=== PATIENT | male | born 1975 | race Caucasian/White ===

== ENCOUNTER 2018-08-28 00:34 | Observation (INO) | payer OTHER ==
[2018-08-28] MEDS ORDERED: HEPARIN SODIUM,PORCINE 5,000 UNIT/ML 1 ML VIAL IV STA (00:51)
[2018-08-28] MEDS ORDERED: SODIUM CHLORIDE 0.9% 1,000 ML IV STA ×2 (00:51)
--- NOTE | 2018-08-28 00:58 | ED ---
Chest Pain HPI - General Source: patient, EMS, RN notes reviewed, old records reviewed Mode of arrival: EMS Limitations: no limitations <Khadijah Villegas - Last Filed: 08/28/18 02:03> <Luis Joy - Last Filed: 08/28/18 09:47> - General Chief Complaint: Chest Pain Stated Complaint: CHEST PAIN Time Seen by Provider: 08/28/18 00:40 - History of Present Illness Initial Comments: This Patient is a 42-year-old male presents emergency Department today with complaints of chest pain, stated dull aching pain and tingling over the left arm left-sided his body. He states he feels somewhat dizzy and lightheaded. Patient reports she was diaphoretic upon arriving. He called EMS. Was given aspirin and nitro. He does report some relief in his chest pain after receiving the nitro. Patient reports his history of hypertension is a smoker. He has had no nausea or vomiting. He denies any previous cardiac history. ( Khadijah Villegas) - Related Data Allergies Allergy/AdvReac Type Severity Reaction Status Date / Time cephalexin [From Keflex] Allergy Swelling Verified 08/28/18 00:51 Review of Systems ROS Other: All systems not noted in ROS Statement are negative. <Khadijah Villegas - Last Filed: 08/28/18 02:03> ROS Other: All systems not noted in ROS Statement are negative. <Luis Joy - Last Filed: 08/28/18 09:47> ROS Statement: Those systems with pertinent positive or pertinent negative responses have been documented in the HPI. EKG Findings - EKG Comments: EKG Findings:: EKG performed at 0 44 shows sinus rhythm with frequent PVCs. Minimal voltage criteria for LVH. Borderline EKG. Ventricular rate of 87 bpm. NM interval is 128 ms. QRS duration is 82 ms. QT QTc is 392/471 ms. <Khadijah Villegas - Last Filed: 08/28/18 02:03> Past Medical History Past Medical History: Hypertension History of Any Multi-Drug Resistant Organisms: None Reported Past Surgical History: No Surgical Hx Reported Past Psychological History: No Psychological Hx Reported Smoking Status: Current every day smoker Past Alcohol Use History: Daily Past Drug Use History: Marijuana <Khadijah Villegas - Last Filed: 08/28/18 02:03> General Exam Limitations: no limitations General appearance: alert, in no apparent distress Head exam: Present: atraumatic, normocephalic, normal inspection Eye exam: Present: normal appearance, PERRL, EOMI. Absent: scleral icterus, conjunctival injection, periorbital swelling ENT exam: Present: normal exam, mucous membranes moist Neck exam: Present: normal inspection. Absent: tenderness, meningismus, lymphadenopathy Respiratory exam: Present: normal lung sounds bilaterally. Absent: respiratory distress, wheezes, rales, rhonchi, stridor Cardiovascular Exam: Present: regular rate, normal rhythm, normal heart sounds. Absent: systolic murmur, diastolic murmur, rubs, gallop, clicks GI/Abdominal exam: Present: soft, normal bowel sounds. Absent: distended, tenderness, guarding, rebound, rigid Extremities exam: Present: normal inspection, full ROM, normal capillary refill. Absent: tenderness, pedal edema, joint swelling, calf tenderness Back exam: Present: normal inspection Neurological exam: Present: alert, oriented X3, CN II-XII intact Psychiatric exam: Present: normal affect, normal mood <Khadijah Villegas - Last Filed: 08/28/18 02:03> <Luis Joy - Last Filed: 08/28/18 09:47> - General Exam Comments Initial Comments: 42-year-old male. Patient appears in no significant distress at this time. (Khadijah Villegas) Vital Signs 08/28/18 08/28/18 00:44 02:08 Temperature 98.6 F Pulse Rate 55 L 71 Respiratory 18 16 Rate Blood Pressure 110/59 119/81 O2 Sat by Pulse 97 100 Oximetry Chest Pain MDM <Khadijah Villegas - Last Filed: 08/28/18 02:03> <Luis Joy - Last Filed: 08/28/18 09:47> - MDM 48-year-old male with history of hypertension and smoking presents emergency Department onset of left-sided chest pain. EKG was reviewed. There is no acute changes. There are some frequently PVCs. Patient reports that his pain was feeling better after aspirin and nitro. Did initiate the Patient on heparin. Patient case was discussed with Dr. Barrios whom discussed the case with Dr. Stanley at 2 AM. He agrees to admission with serial troponins. All questions answered . (Khadijah Villegas) I saw this patient in conjunction with the physician pharmacy affairs assistant. I performed independent history and physical exam. Agree with case management. (Luis Joy) Disposition Is patient prescribed a controlled substance at d/c from ED?: No Time of Disposition: 02:05 <Khadijah Villegas - Last Filed: 08/28/18 02:03> <Luis Joy - Last Filed: 08/28/18 09:47> Clinical Impression: Unstable angina Disposition: ADMITTED IP TO THIS HOSP Condition: Stable
[2018-08-28] MEDS ORDERED: HEPARIN SOD,PORK IN 0.45% NACL 25,000 UNIT in 0.45% NACL 1 250ML.BAG IV SCH (01:00)
[2018-08-28 01:10] LABS: Basophils % (A) 0 %; Eosinophils # (A) 0.1 k/uL (0-0.7); Eosinophils % (A) 2 %; HCT 37.7 % (39.0-53.0); HGB 12.6 gm/dL (13.0-17.5); Lymphocytes # (A) 1.1 k/uL (1.0-4.8); Lymphocytes % (A) 15 %; MCH 32.8 pg (25.0-35.0); MCHC 33.3 g/dL (31.0-37.0); MCV 98.5 fL (80.0-100.0); Mean Platelet Volume 6.5; Monocytes # (A) 0.4 k/uL (0-1.0); Monocytes % (A) 5 %; Neutrophils # (A) 5.6 k/uL (1.3-7.7); Neutrophils % (A) 77 %; Platelet Count 237 k/uL (150-450); RBC 3.83 m/uL (4.30-5.90); RDW 13.3 % (11.5-15.5); WBC 7.3 k/uL (3.8-10.6)
--- NOTE | 2018-08-28 01:15 | XR ---
EXAMINATION TYPE: XR chest 2V DATE OF EXAM: 08/28/2018 COMPARISON: NONE HISTORY: Chest pain TECHNIQUE: Frontal and lateral views of the chest are obtained. FINDINGS: Heart and mediastinum are normal. Lungs are clear. Diaphragm is normal. Bony thorax appear s normal. IMPRESSION: Normal chest
[2018-08-28 01:21] LABS: Albumin 3.9 g/dL (3.5-5.0); Amylase 58 U/L (30-110); Anion Gap 6 mmol/L; Calcium 9.1 mg/dL (8.4-10.2); Carbon Dioxide 27 mmol/L (22-30); Chloride 110 mmol/L (98-107); Glucose 107 mg/dL (74-99); Lipase 64 U/L (23-300); Sodium 143 mmol/L (137-145); Total Bilirubin 0.4 mg/dL (0.2-1.3); Total Protein 6.5 g/dL (6.3-8.2)
[2018-08-28 01:24] LABS: ALT 52 U/L (21-72); AST 41 U/L (17-59); Alkaline Phosphatase 110 U/L (38-126); Blood Urea Nitrogen 12 mg/dL (9-20); Magnesium 1.9 mg/dL (1.6-2.3); Potassium 4.4 mmol/L (3.5-5.1)
[2018-08-28 01:27] LABS: INR 0.9 (<1.2); Prothrombin Time 9.5 sec (9.0-12.0)
[2018-08-28 01:29] LABS: Creatine Kinase 181 U/L (55-170)
[2018-08-28 01:30] LABS: Partial Thromboplastin Time 17.7 sec (22.0-30.0)
[2018-08-28 01:42] LABS: Creatine Kinase MB 1.7 ng/mL (0.0-2.4); Troponin I <0.012 ng/mL (0.000-0.034)
[2018-08-28] MEDS ORDERED: NITROGLYCERIN SL TABS 0.4 MG TAB SUBLINGUAL PRN (02:06)
[2018-08-28 03:15] VITALS: BMI 22.5
[2018-08-28 06:43] LABS: Glucose,Whole Blood 100 mg/dL (75-99)
[2018-08-28 08:08] LABS: Creatine Kinase 127 U/L (55-170)
[2018-08-28 08:19] LABS: Creatine Kinase MB 0.9 ng/mL (0.0-2.4); Troponin I <0.012 ng/mL (0.000-0.034)
[2018-08-28 09:37] LABS: Cholesterol 155 mg/dL (<200); HDL Cholesterol 49 mg/dL (40-60); LDL Cholesterol,Calculated 92 mg/dL (0-99); Triglycerides 71 mg/dL (<150)
[2018-08-28 12:33] VITALS: BP 120/67; PULSE 91; RESP 17; TEMP 98.2
--- NOTE | 2018-08-28 12:57 | P.CRDCN ---
History of Present Illness History of present illness: This is a pleasant 42-year-old male past medical history significant for hypertension remotely in the past. He is currently not on medical therapy. He states he lost his insurance and start taking the medication. He denies history of diabetes mellitus, dyslipidemia or coronary artery disease. He is never seen a java j2ee architect for any reason. We've been asked to see him in consultation for chest pain. He states yesterday after he woke up from a nap he felt like his heart was racing he could feel a very slow and then it would go very fast and it felt like somebody was squeezing around his torso and pressing onto his heart. This lasted for approximately 90 minutes. He called EMS when they arrived they gave him nitroglycerin and his chest tightness subsided. He denies any further symptoms chest discomfort since arriving at the hospital. EKG reveals sinus mechanism with no acute ST or T-wave abnormalities. Chest x-ray is negative for an acute cardiopulmonary process. Laboratory data reviewed, WBC 7.3, hemoglobin 12.6, platelets 237, d-dimer 0.27 , sodium 143, potassium 4.4, creatinine 0.83, magnesium 1.9, cardiac enzymes negative 2, LDL of 92, HDL 49 and TSH 0.487. He currently takes no daily medications. At the time of my exam: CONSTITUTIONAL: Denies fever. Denies chills. EYES: Denies blurred vision. Denies vision changes. Denies eye pain. EARS, NOSE, MOUTH & THROAT: Denies headache. Denies sore throat. Denies ear pain. CARDIOVASCULAR: Denies chest pain. Denies shortness of breath. Denies orthopnea. Denies PND. Denies palpitations. RESPIRATORY: Denies cough. GASTROINTESTINAL: Denies abdominal pain. Denies diarrhea. Denies constipation. Denies nausea. Denies vomiting. MUSCULOSKELETAL: Denies myalgias. INTEGUMENTARY: Denies pruitis. Denies rash. NEUROLOGIC: Denies numbness. Denies tingling. Denies weakness. PSYCHIATRIC: Denies anxiety. Denies depression. ENDOCRINE: Denies fatigue. Denies weight change. Denies polydipsia. Denies polyurina. GENITOURINARY: Denies burning, hematuria or urgency with micturation. HEMATOLOGIC: Denies history of anemia. Denies bleeding. Blood pressure 120/67 heart rate 91 afebrile maintaining oxygen saturation however GENERAL: This is a 42-year-old male in no apparent distress at the time of my examination. HEENT: Head is atraumatic, normocephalic. Pupils are equal, round. Sclerae anicteric. Conjunctivae are clear. Mucous membranes of the mouth are moist. Neck is supple. There is no jugular venous distention. No carotid bruit is heard. LUNGS: Clear to auscultation no wheezes, rales or rhonchi. No chest wall tenderness is noted on palpation or with deep breathing. HEART: Regular rate and rhythm without murmurs, rubs or gallops. S1 and S2 heard. ABDOMEN: Soft, nontender. Bowel sounds are heard. No organomegaly noted. EXTREMITIES: No evidence of peripheral edema and no calf tenderness noted. VASCULAR: Radial and dorsalis pedis pulses palpated, no evidence of clubbing. NEUROLOGIC: Patient is awake, alert and oriented x3. ASSESSMENT Chest pain, atypical. Acute coronary event is ruled out with no acute evidence of ischemia negative cardiac enzymes. Palpitations Remote history of hypertension not currently on medical therapy Chronic nicotine dependence Daily alcohol use PLAN An acute coronary event is ruled out with no acute evidence of ischemia negative cardiac enzymes. Obtain 2-D echocardiogram and Doppler study to assess cardiac structure and function. Perform stress echocardiogram to assess her stress induced cardiac ischemia. If stress test is normal she is stable from a cardiac perspective. Apply event monitor upon discharge, follow up with Dr. Ohara in 3 weeks. Smoking cessation recommended. Thank you kindly for this consultation. Nurse Practitioner note has been reviewed, I agree with a documented findings and plan of care. Patient was seen and examined. Past Medical History Past Medical History: Hypertension History of Any Multi-Drug Resistant Organisms: None Reported Past Surgical History: No Surgical Hx Reported Past Anesthesia/Blood Transfusion Reactions: No Reported Reaction Past Psychological History: No Psychological Hx Reported Smoking Status: Current every day smoker Past Alcohol Use History: Daily Past Drug Use History: Marijuana - Past Family History Father Family Medical History: Cancer, Hypertension Mother Family Medical History: Cancer Brother(s) Family Medical History: Hypertension Medications and Allergies Home Medications Medication Instructions Recorded Confirmed Type No Known Home Medications 08/28/18 08/28/18 History Allergies Allergy/AdvReac Type Severity Reaction Status Date / Time cephalexin [From Keflex] Allergy Swelling Verified 08/28/18 00:51 Physical Exam Vitals: Vital Signs Temp Pulse Pulse Resp BP BP BP 08/28/18 08:00 97.5 F L 69 18 114/64 08/28/18 04:00 97.8 F 63 16 119/70 08/28/18 03:26 83 16 08/28/18 02:54 98.3 F 83 16 111/68 08/28/18 02:08 71 16 119/81 08/28/18 00:44 98.6 F 55 L 18 110/59 Pulse Ox 08/28/18 08:00 98 08/28/18 04:00 96 08/28/18 03:26 08/28/18 02:54 98 08/28/18 02:08 100 08/28/18 00:44 97 Intake and Output 08/27/18 08/28/18 08/28/18 22:59 06:59 14:59 Other: Voiding Method Toilet # Voids 2 Weight 81.647 kg Results 08/28/18 01:00 08/28/18 01:00 Cardiac Enzymes 08/28/18 08/28/18 08/28/18 Range/Units 01:00 01:00 07:12 AST 41 (17-59) U/L CK-MB (CK-2) 1.7 0.9 (0.0-2.4) ng/mL Troponin I <0.012 <0.012 (0.000-0.034) ng/mL Coagulation 08/28/18 08/28/18 Range/Units 01:00 07:12 PT 9.5 (9.0-12.0) sec APTT 17.7 L 33.2 H (22.0-30.0) sec CBC 08/28/18 Range/Units 01:00 WBC 7.3 (3.8-10.6) k/uL RBC 3.83 L (4.30-5.90) m/uL Hgb 12.6 L (13.0-17.5) gm/dL Hct 37.7 L (39.0-53.0) % Plt Count 237 (150-450) k/uL Comprehensive Metabolic Panel 08/28/18 Range/Units 01:00 Sodium 143 (137-145) mmol/L Potassium 4.4 (3.5-5.1) mmol/L Chloride 110 H (98-107) mmol/L Carbon Dioxide 27 (22-30) mmol/L BUN 12 (9-20) mg/dL Creatinine 0.83 (0.66-1.25) mg/dL Glucose 107 H (74-99) mg/dL Calcium 9.1 (8.4-10.2) mg/dL AST 41 (17-59) U/L ALT 52 (21-72) U/L Alkaline Phosphatase 110 (38-126) U/L Total Protein 6.5 (6.3-8.2) g/dL Albumin 3.9 (3.5-5.0) g/dL Current Medications Generic Name Dose Route Start Last Admin Trade Name Freq PRN Reason Stop Dose Admin Heparin Sodium/Sodium Chloride 250 mls @ 9.79 mls/hr 08/28/18 01:00 08/28/18 01:21 25,000 unit/ Sodium Chloride IV 12 units/kg/hr .Q24H CORIE 9.79 mls/hr Administration Protocol 12 UNITS/KG/HR Sodium Chloride 1,000 mls @ 100 mls/hr 08/28/18 00:51 08/28/18 01:21 Saline 0.9% IV 08/28/18 10:50 100 mls/hr .Q10H STA Administration Nitroglycerin 0.4 mg 08/28/18 02:06 Nitrostat SUBLINGUAL Q5M PRN Chest Pain Intake and Output 08/27/18 08/28/18 08/28/18 22:59 06:59 14:59 Other: Voiding Method Toilet # Voids 2 Weight 81.647 kg 08/28/18 01:00 08/28/18 01:00
[2018-08-28] MEDS ORDERED: METOPROLOL SUCCINATE (ER) 25 MG TAB.ER.24H PO SCH (13:15)
--- NOTE | 2018-08-28 14:24 | ECHOS ---
STRESS ECHOCARDIOGRAM MEDICATIONS: BP pill. BASELINE HEART RATE: 54 BASELINE BLOOD PRESSURE: 106/85 MAXIMUM HEART RATE: 160 MAXIMUM BLOOD PRESSURE: 141/54 85% MPHR: 151 100% MPHR: 178 METS: 11.7 MAXIMUM STAGE REACHED: III TOTAL EXERCISE TIME: 10:46 CLINICAL INFORMATION: Patient was exercised for a total period of 11 minutes. The peak heart rate of 160 was achieved, maximum blood pressure of 141/54 mmHg was noted. Resting EKG shows normal sinus rhythm with normal WI interval and QRS duration and normal ST-T waves. During exercise, intermittent PVCs in the form of bigeminy and trigeminy were noted. No ST- segment depression suggestive of ischemia was noted. The baseline echocardiographic images reveal normal left ventricular chamber size with normal left ventricular systolic function in the immediate postexercise period. Normal increase in the wall thickness and contractility is noted. FINAL IMPRESSION: 1. This stress echocardiographic study is negative for stress-induced ischemia. 2. Patient's exercise tolerance is normal. 3. EKG portion of the stress test is not suggestive of ischemia. Patient had intermittent premature ventricular contractions during exercise. MMODL / IJN: [id number] /
[2018-08-28 15:56] LABS: Creatine Kinase 201 U/L (55-170)
[2018-08-28 16:09] LABS: Creatine Kinase MB 0.9 ng/mL (0.0-2.4); Troponin I <0.012 ng/mL (0.000-0.034)
--- NOTE | 2018-08-29 14:10 | HP ---
HISTORY AND PHYSICAL CHIEF COMPLAINT: Chest pain. HISTORY OF PRESENT ILLNESS: The is the first known admission for this 42-year-old white male. He developed substernal chest discomfort across the anterior chest which he described as a "tight" feeling. He became nauseated, vomited and developed diaphoresis. In the emergency room where his EKG and enzymes were normal, but he was admitted. REVIEW OF SYSTEMS: He has had no headaches, syncope, change in vision or hearing, pleurisy, cough, hemoptysis, sputum production, fever, chills, murmurs, rheumatic fever, orthopnea, history of heart disease, abdominal pain, indigestion, nausea, vomiting, hematemesis, melena, hematochezia, hematuria, frequency, urgency, renal failure, diabetes, etc. Past medical history, family history personal and social history is otherwise unremarkable and noncontributory. He is allergic to CEPHALOSPORINS. He has had no surgery and he is not taking any medication. He has a negative family history of heart disease. He smokes a pack cigarettes a day. PHYSICAL EXAM: Blood pressure 132/78 with a pulse of 81, respirations of 15 and he is afebrile. GENERAL: He appeared to be well developed, well nourished, in no acute distress. Skin color is normal, skin is warm and dry. Lymph nodes not enlarged. Head, ears, eyes, nose, mouth, and throat were normal. Neck veins are not distended. Thyroid is not enlarged. Chest is clear. Cardiac exam is normal. No murmurs or extra sounds. There are no rubs. Abdomen is soft, nontender. There are no masses or visceromegaly. EXTREMITIES: Normal. Neurologically intact. IMPRESSION: 1. Chest pain. 2. Rule out coronary artery disease. 3. Nicotine abuse. PLAN: 1. Bed rest. 2. IV fluids. 3. Serial EKGs and enzymes. 4. Cardiology consult. MMODL / IJN: [id number] /
--- NOTE | 2018-08-29 16:31 | DS ---
DISCHARGE SUMMARY CHIEF COMPLAINT: Chest pain. HISTORY OF PRESENT ILLNESS AND PHYSICAL EXAM: Details of this man's history and physical can be found in the initial workup. LABORATORY STUDIES: While he was in the hospital, he had laboratory studies, details which can be found in the laboratory section of his chart. COURSE IN HOSPITAL: After admission, he was placed on bedrest, started on intravenous fluids and had serial EKGs and enzymes. They were normal. He was taken back to Cardiology for stress study and that was normal. It was felt he could be discharged. He will go home on usual activity, diet and medication and will follow up in the office in several days. FINAL DIAGNOSIS: 1. Chest pain, noncardiac. 2. Nicotine abuse. OPERATIONS: None. CONSULTATION: Cardiology. He is improved. ALYX / ALEJANDRINA: [id number] /
== END 2018-08-28 17:40 | disposition home or self-care (01) ==
LOC: EC 00:34 → 1SOBS 02:06
PROVIDERS: ADMIT Family Medicine; ATTEND Family Medicine
DX: R07.2 Precordial pain (principal); R11.2 Nausea with vomiting, unspecified; R61 Generalized hyperhidrosis; R00.2 Palpitations; R20.2 Paresthesia of skin; R42 Dizziness and giddiness; F17.210 Nicotine dependence, cigarettes, uncomplicated; Z88.1 Allergy status to other antibiotic agents; Z82.49 Family history of ischemic heart disease and other diseases of the circulatory system; Z80.9 Family history of malignant neoplasm, unspecified
CPT/HCPCS: 96361; 96366 ×2; 96376; 96365; 99285; 36415; 93005; 93270; 93271; 93351; 85379; 80061; 80053; 84443; 82150; 82550; 82553; 83690; 83735; 84484; 85025; 85610; 85730; 71046; G0378; J1644 ×2

== ENCOUNTER 2021-12-01 10:30 | Observation (INO) | payer OTHER ==
[2021-12-01] MEDS ORDERED: VANCOMYCIN IV PER PHARMACY 1 EACH MISC MISCELLANE PRN (13:34)
[2021-12-01] MEDS ORDERED: VANCOMYCIN 1,500 MG in SODIUM CHLORIDE 0.9% 250 ML IVPB STA (13:37)
--- NOTE | 2021-12-01 14:02 | ED ---
General Adult HPI - General Chief complaint: Extremity Problem,Nontraumatic Stated complaint: Lt leg cellulitis Time Seen by Provider: 12/01/21 13:20 Source: patient, RN notes reviewed, old records reviewed Mode of arrival: ambulatory Limitations: no limitations - History of Present Illness Initial comments: This is a 46 year old male presents emergency Department with a past history of alcoholism. Patient states she's been sober 6 months. Patient states he has had cellulitis of the left lower leg multiple times and recently started to swell and become more red and the fluid began to leak out and so he saw his primary medical doctor. Primary doctor placed him on Bactrim and finish the Bactrim and symptoms persist so his primary medical care doctor told him to come to the emergency department. Patient denies any injury. Patient denies any fever chills. Patient doesn't know why he initially got cellulitis years ago but he states it was indeed a staph infection. - Related Data Home Medications Medication Instructions Recorded Confirmed Multivitamins, Thera [Multivitamin 1 tab PO DAILY 12/01/21 12/01/21 (formulary)] diphenhydrAMINE [Benadryl] 50 mg PO HS PRN 12/01/21 12/01/21 Allergies Allergy/AdvReac Type Severity Reaction Status Date / Time cephalexin [From Keflex] Allergy Swelling Verified 12/01/21 14:19 Review of Systems ROS Statement: Those systems with pertinent positive or pertinent negative responses have been documented in the HPI. ROS Other: All systems not noted in ROS Statement are negative. Past Medical History Past Medical History: Hypertension History of Any Multi-Drug Resistant Organisms: None Reported Past Surgical History: No Surgical Hx Reported Past Anesthesia/Blood Transfusion Reactions: No Reported Reaction Past Psychological History: No Psychological Hx Reported Smoking Status: Current every day smoker Past Alcohol Use History: Daily Past Drug Use History: Marijuana - Past Family History Father Family Medical History: Cancer, Hypertension Mother Family Medical History: Cancer Brother(s) Family Medical History: Hypertension General Exam - General Exam Comments Initial Comments: GENERAL: Patient is well-developed and well-nourished. Patient is nontoxic and well- hydrated and is in mild distress. ENT: Neck is soft and supple. No significant lymphadenopathy is noted. Oropharynx is clear. Moist mucous membranes. Neck has full range of motion without eliciting any pain. EYES: The sclera were anicteric and conjunctiva were pink and moist. Extraocular movements were intact and pupils were equal round and reactive to light. Eyelids were unremarkable. PULMONARY: Unlabored respirations. Good breath sounds bilaterally. No audible rales rhonchi or wheezing was noted. CARDIOVASCULAR: There is a regular rate and rhythm without any murmurs gallops or rubs. ABDOMEN: Soft and nontender with normal bowel sounds. SKIN: Skin is clear with no lesions or rashes and otherwise unremarkable. NEUROLOGIC: Patient is alert and oriented x3. Cranial nerves II through XII are grossly intact. Motor and sensory are also intact. Normal speech, volume and content. Symmetrical smile. MUSCULOSKELETAL: Left lower leg is swollen and there is some leaking of clear fluid. Areas mildly tender. The distal leg to the foot patient does have good cap refill. LYMPHATICS: No significant lymphadenopathy is noted PSYCHIATRIC: Normal psychiatric evaluation. Limitations: no limitations Course Vital Signs 12/01/21 11:05 Temperature 98.4 F Pulse Rate 82 Respiratory 18 Rate Blood Pressure 164/96 O2 Sat by Pulse 100 Oximetry Medical Decision Making - Medical Decision Making X-ray shows no obvious subcu air. I spoke with Dr. Stanley he agreed to admit the patient. I admitted the patient and I gave the patient dose of the ankle in the emergency department I ordered an echo for the floor. - Lab Data Result diagrams: 12/01/21 13:54 12/01/21 13:54 Lab Results 12/01/21 12/01/21 12/01/21 Range/Units 13:54 13:54 13:54 WBC 5.3 (3.8-10.6) k/uL RBC 4.06 L (4.30-5.90) m/uL Hgb 12.6 L (13.0-17.5) gm/dL Hct 40.0 (39.0-53.0) % MCV 98.5 (80.0-100.0) fL MCH 31.1 (25.0-35.0) pg MCHC 31.5 (31.0-37.0) g/dL RDW 14.0 (11.5-15.5) % Plt Count 321 (150-450) k/uL MPV 6.5 Neutrophils % 56 % Lymphocytes % 31 % Monocytes % 6 % Eosinophils % 2 % Basophils % 1 % Neutrophils # 3.0 (1.3-7.7) k/uL Lymphocytes # 1.6 (1.0-4.8) k/uL Monocytes # 0.3 (0-1.0) k/uL Eosinophils # 0.1 (0-0.7) k/uL Basophils # 0.1 (0-0.2) k/uL Sodium 137 (137-145) mmol/L Potassium 4.2 (3.5-5.1) mmol/L Chloride 102 (98-107) mmol/L Carbon Dioxide 29 (22-30) mmol/L Anion Gap 6 mmol/L BUN 11 (9-20) mg/dL Creatinine 0.91 (0.66-1.25) mg/dL Est GFR (CKD-EPI)AfAm >90 (>60 ml/min/1.73 sqM) Est GFR (CKD-EPI)NonAf >90 (>60 ml/min/1.73 sqM) Glucose 94 (74-99) mg/dL Plasma Lactic Acid Dennis 0.9 (0.7-2.0) mmol/L Calcium 9.2 (8.4-10.2) mg/dL Total Bilirubin 0.7 (0.2-1.3) mg/dL AST 35 (17-59) U/L ALT 38 (4-49) U/L Alkaline Phosphatase 80 (38-126) U/L Total Protein 7.4 (6.3-8.2) g/dL Albumin 4.5 (3.5-5.0) g/dL Disposition Clinical Impression: Cellulitis of left leg Disposition: ADMITTED IP TO THIS [facility] Referrals: Dudley Stanley MD [Primary Care Provider] - 1-2 days Time of Disposition: 15:20
[2021-12-01 14:11] LABS: Basophils # (A) 0.1 k/uL (0-0.2); Basophils % (A) 1 %; Eosinophils # (A) 0.1 k/uL (0-0.7); Eosinophils % (A) 2 %; HGB 12.6 gm/dL (13.0-17.5); Lymphocytes # (A) 1.6 k/uL (1.0-4.8); Lymphocytes % (A) 31 %; MCH 31.1 pg (25.0-35.0); MCHC 31.5 g/dL (31.0-37.0); MCV 98.5 fL (80.0-100.0); Mean Platelet Volume 6.5; Monocytes # (A) 0.3 k/uL (0-1.0); Monocytes % (A) 6 %; Neutrophils % (A) 56 %; Platelet Count 321 k/uL (150-450); RBC 4.06 m/uL (4.30-5.90); WBC 5.3 k/uL (3.8-10.6)
--- NOTE | 2021-12-01 14:23 | XR ---
EXAMINATION TYPE: XR tibia fibula LT DATE OF EXAM: 12/01/2021 COMPARISON: NONE HISTORY: Pain TECHNIQUE: Two views are submitted. FINDINGS: The osseous structures are intact. The joint spaces are preserved. Soft tissue edema. No destructiv e changes. There is spotty low-attenuation soft tissues of the left lower extremity. IMPRESSION: . 1. No acute osseous abnormality. Correlate for soft tissue edema. Low attenuation in the soft tissues could represent small amount of subcutaneous emphysema and infectious etiology. Correlate clinically .
[2021-12-01 14:24] LABS: ALT 38 U/L (4-49); AST 35 U/L (17-59); African American GFR (CKD) >90 (>60 ml/min/1.73 sqM); Albumin 4.5 g/dL (3.5-5.0); Alkaline Phosphatase 80 U/L (38-126); Anion Gap 6 mmol/L; Blood Urea Nitrogen 11 mg/dL (9-20); Calcium 9.2 mg/dL (8.4-10.2); Carbon Dioxide 29 mmol/L (22-30); Chloride 102 mmol/L (98-107); Glucose 94 mg/dL (74-99); Non-African American GFR(CKD) >90 (>60 ml/min/1.73 sqM); Potassium 4.2 mmol/L (3.5-5.1); Sodium 137 mmol/L (137-145); Total Bilirubin 0.7 mg/dL (0.2-1.3); Total Protein 7.4 g/dL (6.3-8.2)
[2021-12-01] MEDS ORDERED: KETOROLAC 15 MG/ML 1 ML VIAL IVP STA (14:50)
[2021-12-01] MEDS: traMADol 50 MG TAB PO PRN (23:37)
[2021-12-01] MEDS: VANCOMYCIN 1,500 MG in SODIUM CHLORIDE 0.9% 250 ML IVPB SCH (23:37)
[2021-12-02] MEDS: VANCOMYCIN 1,500 MG in SODIUM CHLORIDE 0.9% 250 ML IVPB SCH (05:34)
[2021-12-02] MEDS: traMADol 50 MG TAB PO PRN ×3 (08:54→21:06)
[2021-12-02] MEDS ORDERED: diphenhydrAMINE 25 MG CAP PO PRN (11:56)
--- NOTE | 2021-12-02 11:58 | HP ---
HISTORY AND PHYSICAL DATE OF SERVICE: 12/02/2021 CHIEF COMPLAINT: Cellulitis, left leg. HISTORY OF PRESENT ILLNESS: This is another admission for this 46-year-old white male . He has had chronic problems of the left leg. 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 He has had problems in the past with secondary bacterial infection, and this started up again and he presented to the emergency room. There is drainage from the lower leg and ankle. REVIEW OF SYSTEMS: He has had no fever, chills, chest pain, cough, heart disease, abdominal pain, urinary complaints, diabetes, etc. Past medical history is unremarkable. PHYSICAL EXAMINATION: Chest is clear. Cardiac exam is normal. Abdomen is soft and nontender. He feels that the leg is slightly better after the antibiotics and elevation had been put into place. The leg is dressed and there is slight drainage or transudation through the skin. IMPRESSION: 1. Cellulitis of the left leg. 2. Eczematoid dermatitis of the left leg. PLAN: Continue with IV fluids and antibiotics along with elevation. MMODL / IJN: [id number] /
[2021-12-02] MEDS ORDERED: VANCOMYCIN TROUGH DUE 1 EACH MISC MISCELLANE ONE (13:00)
[2021-12-02 13:34] LABS: African American GFR (CKD) >90 (>60 ml/min/1.73 sqM); Non-African American GFR(CKD) >90 (>60 ml/min/1.73 sqM)
[2021-12-02] MEDS: VANCOMYCIN 1,250 MG in SODIUM CHLORIDE 0.9% 250 ML IVPB SCH ×2 (15:12→23:25)
[2021-12-02] MEDS: MUPIROCIN 2% OINT 22 GM TUBE TOPICAL SCH ×3 (16:05→21:30)
--- NOTE | 2021-12-02 20:53 | HP ---
HISTORY AND PHYSICAL CHIEF COMPLAINT: Pain and cellulitis of the left lower leg. 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 He has a history of eczematoid dermatitis of the left lower leg with secondary infection and cellulitis. He has not been seen in the office since 2018. Apparently he in the last day or two he has noticed that the left lower leg has been swelling and become more painful. He came to the emergency room, where he was diagnosed as having cellulitis with some of fluid around the ankle. REVIEW OF SYSTEMS: He denied any chest pain, shortness of breath, fever, chills, headaches, cough, hemoptysis, heart disease, etc. He has had a history of hypertension in the past. He has had no abdominal pain, nausea, vomiting, diarrhea, renal disease, dysuria, incontinence, diabetes, etc. Past medical history, family history, and personal and social histories reveal that he is ALLERGIC TO CEPHALOSPORINS, but not taking any medication. He does smoke. PHYSICAL EXAMINATION: His blood pressure is 146/90 with a pulse of 60, respirations 16. He is afebrile. In general he appeared to be well developed, well nourished, in no acute distress. Skin color is normal. Skin is warm, dry. Lymph nodes are not enlarged. Head, ears, eyes, nose, mouth and throat were normal. Neck veins are not distended. Thyroid is not enlarged. Chest is clear. Cardiac exam is normal. Abdomen is soft, nontender. Extremities reveal circumferential eczematoid, dry, scaly dermatitis of the left leg from the knee on down into the foot. There is erythema and there is some drainage that is serous fluid around the ankle. Peripheral circulation is good. IMPRESSION: 1. Cellulitis of the left leg. 2. 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 3. History of hypertension. PLAN: Intravenous fluids and monitor edema and cellulitis as well as dermatitis of the left leg. MMODL / IJN: [id number] /
[2021-12-03 07:17] LABS: African American GFR (CKD) >90 (>60 ml/min/1.73 sqM); Non-African American GFR(CKD) >90 (>60 ml/min/1.73 sqM)
[2021-12-03] MEDS: VANCOMYCIN 1,250 MG in SODIUM CHLORIDE 0.9% 250 ML IVPB SCH ×3 (08:29→22:53)
[2021-12-03] MEDS: traMADol 50 MG TAB PO PRN ×3 (09:41→21:31)
[2021-12-03] MEDS: MUPIROCIN 2% OINT 22 GM TUBE TOPICAL SCH ×3 (14:12→21:37)
--- NOTE | 2021-12-03 18:34 | PN ---
PROGRESS NOTE DATE OF SERVICE: 12/03/2021 CHIEF COMPLAINT: Cellulitis of the left leg. HISTORY OF PRESENT ILLNESS: This gentleman is doing better. There is slightly less drainage. Dressings are being applied. Pain is improving and edema is going down. PHYSICAL EXAMINATION: He is afebrile. Chest is clear. Cardiac exam is normal. Abdomen is soft, nontender. IMPRESSION: Cellulitis of the left lower extremity with a dry maculopapular rash. PLAN: Continue with mupirocin and IV antibiotics with dressing changes. MMODL / IJN: [id number] /
[2021-12-04] MEDS ORDERED: VANCOMYCIN TROUGH DUE 1 EACH MISC MISCELLANE ONE (06:00)
[2021-12-04 07:40] LABS: African American GFR (CKD) >90 (>60 ml/min/1.73 sqM); Anion Gap 5 mmol/L; Blood Urea Nitrogen 12 mg/dL (9-20); Carbon Dioxide 30 mmol/L (22-30); Chloride 103 mmol/L (98-107); Glucose 89 mg/dL (74-99); Non-African American GFR(CKD) >90 (>60 ml/min/1.73 sqM); Potassium 4.2 mmol/L (3.5-5.1); Sodium 138 mmol/L (137-145)
[2021-12-04] MEDS: VANCOMYCIN 1,250 MG in SODIUM CHLORIDE 0.9% 250 ML IVPB SCH ×3 (09:20→22:24)
[2021-12-04] MEDS: traMADol 50 MG TAB PO PRN ×3 (10:49→22:23)
[2021-12-04] MEDS: MUPIROCIN 2% OINT 22 GM TUBE TOPICAL SCH ×3 (10:50→22:24)
--- NOTE | 2021-12-04 13:12 | PN ---
PROGRESS NOTE CHIEF COMPLAINT: Dermatitis and cellulitis of the left leg and ankle. HISTORY OF PRESENT ILLNESS: This gentleman is doing a little bit better each day. There is still small amount of drainage on the dressing. PHYSICAL EXAMINATION: Chest is clear. Cardiac exam is normal. Abdomen is soft, nontender. Cellulitis in the left lower leg, and ankle is improving. IMPRESSION: Eczema of the left lower leg, ankle and foot with cellulitis. PLAN: Continue with IV fluids and antibiotics at least for another day or 2. MMODL / IJN: [id number] /
[2021-12-05 04:05] VITALS: RESP 16
[2021-12-05 07:35] VITALS: BP 124/64; PULSE 71; TEMP 98.2
[2021-12-05] MEDS: VANCOMYCIN 1,250 MG in SODIUM CHLORIDE 0.9% 250 ML IVPB SCH (08:25)
[2021-12-05] MEDS: MUPIROCIN 2% OINT 22 GM TUBE TOPICAL SCH (08:25)
[2021-12-05] MEDS: traMADol 50 MG TAB PO PRN (08:35)
--- NOTE | 2021-12-05 19:52 | DS ---
DISCHARGE SUMMARY CHIEF COMPLAINT: Eczematous dermatitis of the left lower leg with cellulitis. HISTORY OF PRESENT ILLNESS AND PHYSICAL EXAMINATION: Details of this man's history and physical can be found in the initial workup. LABORATORY STUDIES: While he was in the hospital he had laboratory studies, details of which can be found in the laboratory section of his chart. COURSE IN THE HOSPITAL: After admission he was placed on bedrest and started on intravenous fluids and IV antibiotics. Mupirocin ointment was added. He had some transudation, but this was slowly receding. He was doing well and was afebrile and without pain. It was felt that he could be discharged. He will go home on Bactrim and mupirocin ointment and he will be followed up in a day or so in the office. FINAL DIAGNOSIS: 1. Cellulitis of the left lower leg. 2. Eczema of the left lower leg. OPERATIONS: None. CONSULTATIONS: None. He is improved. MMODL / IJN: [id number] /
[2021-12-05] MEDS ORDERED: SULFAMETHOX-TMP 800-160MG 1 EACH TAB PO SCH (21:00)
[2021-12-06] MEDS ORDERED: VANCOMYCIN TROUGH DUE 1 EACH MISC MISCELLANE ONE (06:00)
== END 2021-12-05 10:58 | disposition home or self-care (01) ==
LOC: EC 10:30 → 6NMEDSUR 15:41
PROVIDERS: ADMIT Family Medicine; ATTEND Family Medicine
DX: L03.116 Cellulitis of left lower limb (principal); L30.9 Dermatitis, unspecified; I10 Essential (primary) hypertension; Z88.1 Allergy status to other antibiotic agents; F17.200 Nicotine dependence, unspecified, uncomplicated; Z82.49 Family history of ischemic heart disease and other diseases of the circulatory system; Z80.9 Family history of malignant neoplasm, unspecified
CPT/HCPCS: 96366 ×6; 96365; 96375; 99285; 36415; 80053; 80048; 82565 ×2; 83605; 85025; 80202 ×2; 87040; 73590; G0378 ×5; J3370 ×5; J1885